=== PATIENT | male | born 1955 | race Caucasian/White ===

== ENCOUNTER → 2016-09-09 | Outpatient (CLI) | payer BC | LOC: COL.RAD 08:00 | DX: M25.551 Pain in right hip (principal); M16.11 Unilateral primary osteoarthritis, right hip | CPT/HCPCS: J3301; Q9967 ==

== ENCOUNTER → 2016-11-16 | Outpatient (CLI) | payer BC | LOC: COL.LAB 10:18 | DX: Z01.812 Encounter for preprocedural laboratory examination (principal); M25.851 Other specified joint disorders, right hip ==

== ENCOUNTER → 2016-11-23 | Outpatient (REF) ==
[2016-11-23 06:52] LABS: HEMATOCRIT 41.7 % (42.0-52.0); HEMOGLOBIN 14.3 g/dl (13.5-18.0)
== END ==
LOC: ZMSC 06:43
PROVIDERS: Orthopaedic Surgery
DX: Z01.89 Encounter for other specified special examinations (principal)